=== PATIENT | female | born 1995 | race Caucasian/White ===

== ENCOUNTER 2016-11-21 23:13 | Emergency (ER) | payer OTHER ==
[2016-11-21 23:20] VITALS: RESP 16; TEMP 98.2
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
[2016-11-22] MEDS ORDERED: OXYCODONE/APAP 5/325 TAB PO ONE (00:29)
[2016-11-22 01:09] VITALS: BP 109/67; PULSE 73; O2SAT 98
== END 2016-11-22 01:08 | disposition home or self-care (01) ==
DX: S00.83XA Contusion of other part of head, initial encounter (principal); S00.81XA Abrasion of other part of head, initial encounter; S50.812A Abrasion of left forearm, initial encounter; S60.512A Abrasion of left hand, initial encounter; V49.40XA Driver injured in collision with unspecified motor vehicles in traffic accident, initial encounter; Y92.410 Unspecified street and highway as the place of occurrence of the external cause; Y99.8 Other external cause status; Y93.89 Activity, other specified